=== PATIENT | male | born 1995 | race Caucasian/White ===

== ENCOUNTER 2023-03-07 14:26 | Outpatient (CLI) | payer BC, SELFPAY ==
--- NOTE | 2023-03-07 15:45 | MR_ITS ---
WS: [id number] MRA HEAD TECHNIQUE: Axial 3-D TOF images obtained with axial images and axial, sagittal, and coronal 2-D refor matted images. CLINICAL INFORMATION: G43.711 - Chronic migraine without aura, intractable, wit... COMPARISON: None. FINDINGS: Some images slightly degraded by motion artifact. Slight irregularity involving the distal M1 segments and second and third order vessels as well as th e TYRON territory suspicious for vasculitis. This is more prominent involving the distal cortical vesse ls. Recommend correlation with clinical history. Although, no associated parenchymal abnormalities on the MRI brain imaging. Distal vertebral arteries are patent. Basilar artery is patent. Normal vascularity to the [employer] territo ry bilaterally. Both ICAs are patent at the skull base. Normal vascularity to the TYRON and MCA territories bilaterally . No evidence of proximal flow-limiting stenosis or aneurysm. IMPRESSION: Some images slightly degraded by motion. 1. Irregularity mainly in the second and third order MCA vessels and TYRON vessels suspicious for vasc ulitis. Recommend correlation with clinical history. 2. Otherwise normal intracranial MRA. 3. No evidence of proximal flow-limiting stenosis or aneurysm.
--- NOTE | 2023-03-07 16:00 | MR_ITS ---
WS: [id number] MRI HEAD WITHOUT CONTRAST TECHNIQUE: Sagittal T1, T2 axial, T2 axial FLAIR, axial and coronal T1 images, axial susceptibility w eighted imaging, axial diffusion weighted images, and coronal T2 images were obtained. Fast imaging w as performed on some sequences. CLINICAL INFORMATION: G43.711 - Chronic migraine without aura, intractable, wit... COMPARISON: None. FINDINGS: No evidence of restricted diffusion to suggest acute ischemia. Ventricular system and basilar cistern s are patent. Normal diaz-white differentiation indication. No suspicious intracranial signal normali ties. Normal posterior fossa. Normal vascular flow voids at the skull base. No extra-axial fluid maxwell ections. No evidence of mass or mass effect. No hemosiderin on the susceptibility weighted images. Normal optic chiasm and pituitary infundibulum. Temporal lobes and hippocampal formations are normal in appearance. Normal cavernous sinuses and Mec jose luis's cave. Normal posterior nasopharynx. Paranasal sinuses are well aerated. Mild mucosal thickening in the ethmoid air cells. Mastoid air cells are well aerated. Incidental slight cerebellar tonsillar ectopia. IMPRESSION: 1. No evidence of restricted diffusion to suggest acute ischemia. 2. No suspicious intracranial signal normalities. 3. No hemosiderin on the susceptibly weighted images. 4. Temporal lobes and hippocampal formations are normal in appearance. 5. Incidental slight cerebellar tonsillar ectopia. 6. No other suspicious findings.
== END 2023-03-07 14:27 | disposition home or self-care (01) ==
PROVIDERS: Visit Provider Specialist
DX: G43.711 Chronic migraine without aura, intractable, with status migrainosus (principal)
CPT/HCPCS: 70544; 70551

== ENCOUNTER → 2023-03-22 16:50 | Outpatient (BNVA) | payer BC, SELFPAY | PROVIDERS: Visit Provider Specialist | DX: G43.711 Chronic migraine without aura, intractable, with status migrainosus (principal); I67.7 Cerebral arteritis, not elsewhere classified | CPT/HCPCS: 36415; 85651; 86140; 86160; 86162; 86235; 86255; 86376 ==

== ENCOUNTER 2023-04-04 15:54 | Outpatient (CLI) | payer BC, SELFPAY ==
--- NOTE | 2023-04-04 16:30 | CT_ITS ---
WS: [id number] CT ANGIOGRAM CEREBRAL ARTERIES HISTORY: I67.7 - Cerebral arteritis, not elsewhere classified TECHNIQUE: Pre and postcontrast imaging through the brain. CT angiogram is performed of the cerebral arteries. During arterial injection imaging is obtained from the skull vertex to the skull base in 1. 25 mm imaging. Coronal and sagittal reformats are submitted. Additional multi planar reformats of the cerebral arteries are submitted, MIP imaging also reviewed. All CT scans at [facility] use at least one of these dose optimization techniques: automated exposure control; mA and/or kV adjustme nt per patient size (includes targeted exams where dose is matched to clinical indication); or iterat dominique reconstruction. CONTRAST: Omnipaque 350; 100 mL IV. DLP: 2407.45 mGy.cm COMPARISON: MR angiogram 03/07/2023 No acute intracranial hemorrhage or edema. Juan-white matter differentiation is normal. Ventricles ar e normal. Intracranial vertebral arteries: Normal with no significant atherosclerosis. Basilar artery: No significant stenosis or occlusion. No aneurysm. Intracranial Internal carotid arteries: Demonstrates no significant stenosis or plaque. Middle cerebral arteries: Normal. No beading or areas of stenosis or stricture. No irregularity. Anterior cerebral arteries and ACOM: Normal. Posterior cerebral arteries and PCOM's: Normal. Dural venous sinuses are normally enhancing. Mastoid air cells: Normal. Paranasal sinuses: Normal. Calvarium: Normal. IMPRESSION: 1. No cerebral aneurysm or occlusions. 2. No evidence for vasculitis identified by CT angiogram. Normal appearance of the middle cerebral an d anterior cerebral arteries. There are no strictures or aneurysms. No irregularity.
[2023-04-04] MEDS: iohexol 350 mg/mL 500 mL Btl (per mL) IV (16:33)
== END 2023-04-04 15:55 | disposition home or self-care (01) ==
LOC: RAD 15:54
PROVIDERS: Visit Provider Specialist
DX: G43.711 Chronic migraine without aura, intractable, with status migrainosus (principal); I67.7 Cerebral arteritis, not elsewhere classified
CPT/HCPCS: 70496; Q9967